=== PATIENT | male | born 1950 | race Caucasian/White ===

== ENCOUNTER 2024-04-06 17:47 | Emergency (ER) | payer MEDICARE, BC, SELFPAY ==
--- NOTE | 2024-04-06 18:53 | ED.GENMED ---
History of Present Illness
<Ivonne Trivedi, [employer] - Last Filed: 04/07/24 20:49>
General
Chief Complaint: Chest Pain
Source: patient
Exam Limitations: none
Time Seen by Provider: 04/06/24 18:52
Nursing documentation reviewed up to this point in time: agreed with
History of Present Illness
History of Present Illness:
73-year-old male with history of HTN, HLD, GERD here stating at 5:15 p.m., 30 minutes after 'wolfing down my dinner' as he hadn't eaten all day, while walking into the house from outside, had a 2 second episode of mid chest pressure then immediately
felt lightheaded, then felt tingling 'all over my body' then broke out in a heavy sweat. Took [address], belched several times and felt better, presents asymptomatic at this time.
Past History
<Ivonne Trivedi, [employer] - Last Filed: 04/07/24 20:49>
Past History
ED Past Medical History: GERD, HTN and Hypercholesterolemia
ED Past Surgical History: Tonsilectomy and Other (hernia repair)
Review of Systems
<Ivonne Trivedi, [employer] - Last Filed: 04/07/24 20:49>
Review of Systems
Allergies reviewed?: Yes
All Other Systems: ROS reviewed and negative except as documented in HPI and ROS
Constitutional: Denies fever or fatigue
Respiratory: Denies trouble breathing
Cardiac: Reports chest pain and diaphoresis; Denies palpitations or syncope
ABD/GI: Denies abdominal pain, nausea, vomiting or diarrhea
: Reports no symptoms
Musculoskeletal: Reports no symptoms
Skin: Reports no symptoms
Neurological: Reports no symptoms
Phy Exam
<Ivonne Trivedi, [employer] - Last Filed: 04/07/24 20:49>
Physical Exam
Physical Exam:
GENERAL: No acute distress. A&Ox3.
CONSTITUTIONAL: Afebrile.
EYES: clear, conjunctivae normal
ENMT: moist mucus membranes, Pharynx nl
RESPIRATORY: Regular respirations, nonlabored, lungs clear.
CARDIOVASCULAR: Regular rate and rhythm, no murmurs, no rubs.
GI: Soft, nontender, normal BS
MUSCULOSKELETAL: Moves with ease. Well perfused.
SKIN: Warm, dry, pink
PSYCH: Normal mood and affect. Well kept, interactive and appropriate
NEUROLOGIC: Awake, alert and oriented. No focal neurological deficits
Scores
<Ivonne Trivedi [employer] - Last Filed: 04/07/24 20:49>
Heart Score for Chest Pain Patients
Heart Score for Chest Pain Patients: 3
Heart Score Risk: 2.5% MACE over next 6 weeks
<Mona Jamison PA-C - Last Filed: 04/06/24 23:11>
Heart Score for Chest Pain Patients
STEMI patient?: No
History: Slightly or Non-Suspicious
ECG: Normal
Age: >/= 65 years
Risk Factors: 1 or 2 Risk Factors
Troponin: </= Normal Limit
Heart Score for Chest Pain Patients: 3
Heart Score Risk: 2.5% MACE over next 6 weeks
Course
<Ivonne Trivedi [employer] - Last Filed: 04/07/24 20:49>
Orders/Labs/Results
Orders:
Orders
04/06/24 17:52
Electrocardiogram (*1) Urgent
Reason for Study: Chest Pain
EKG- Treatment ONCE
04/06/24 18:11
O2 Therapy [RESP] Urgent
Titrate/Wean O2 to maintain O2 sat greater than (%): 90
Special Instructions: Maintain sats >/=90%
04/06/24 18:53
Complete Blood Count/With Diff Urgent
Comprehensive Metabolic Panel Urgent
Troponin I Urgent
04/06/24 19:09
CR Chest - 2 Views Urgent
Comment:
Reason For Exam: chest pain
04/06/24 20:18
EKG- Treatment ONCE
04/06/24 21:42
Troponin I Urgent
04/06/24 21:45
Electrocardiogram (*1) Urgent
Reason for Study: Chest Pain
Abnormal Lab Results
04/06/24
18:53
RBC 4.25 L 10^6/uL
(4.70-6.10)
Hct 36.8 L %
(39.0-52.0)
BUN 21 H mg/dl
(9-20)
Glucose 119 H mg/dl
(70-99)
Total Protein 6.2 L g/dl
(6.3-8.2)
04/06/24 18:53
04/06/24 18:53
Vital Signs
Initial and Last Documented VS:
Initial Vital Signs
Temp Pulse Resp Pulse Ox
98.0 F 93 16 99
04/06/24 17:50 04/06/24 17:50 04/06/24 17:50 04/06/24 17:50
Last Documented Vital Signs
Temp Pulse Resp BP Pulse Ox
98.0 F 60 16 122/76 98
04/06/24 17:50 04/06/24 22:40 04/06/24 22:40 04/06/24 22:40 04/06/24 22:40
<Mona Jamison PA-C - Last Filed: 04/06/24 23:11>
Orders/Labs/Results
Orders:
Orders
04/06/24 17:52
Electrocardiogram (*1) Urgent
Reason for Study: Chest Pain
EKG- Treatment ONCE
04/06/24 18:11
O2 Therapy [RESP] Urgent
Titrate/Wean O2 to maintain O2 sat greater than (%): 90
Special Instructions: Maintain sats >/=90%
04/06/24 18:53
Complete Blood Count/With Diff Urgent
Comprehensive Metabolic Panel Urgent
Troponin I Urgent
04/06/24 19:09
CR Chest - 2 Views Urgent
Comment:
Reason For Exam: chest pain
04/06/24 20:18
EKG- Treatment ONCE
04/06/24 21:42
Troponin I Urgent
04/06/24 21:45
Electrocardiogram (*1) Urgent
Reason for Study: Chest Pain
Abnormal Lab Results
04/06/24
18:53
RBC 4.25 L 10^6/uL
(4.70-6.10)
Hct 36.8 L %
(39.0-52.0)
BUN 21 H mg/dl
(9-20)
Glucose 119 H mg/dl
(70-99)
Total Protein 6.2 L g/dl
(6.3-8.2)
04/06/24 18:53
04/06/24 18:53
Vital Signs
Initial and Last Documented VS:
Initial Vital Signs
Temp Pulse Resp Pulse Ox
98.0 F 93 16 99
04/06/24 17:50 04/06/24 17:50 04/06/24 17:50 04/06/24 17:50
Last Documented Vital Signs
Temp Pulse Resp BP Pulse Ox
98.0 F 60 16 122/76 98
04/06/24 17:50 04/06/24 22:40 04/06/24 22:40 04/06/24 22:40 04/06/24 22:40
Sebastiánlt;Ivonne Trivedi [employer] - Last Filed: 04/07/24 20:49>
MDM/Problems Addressed
Differential Diagnosis Includes:
ACS, angina, GERD
MDM/Problems Addressed:
73-year-old male with history of HTN, HLD, GERD here stating at 5:15 p.m., 30 minutes after 'wolfing down my dinner' as he hadn't eaten all day, while walking into the house from outside, had a 2 second episode of mid chest pressure then immediately
felt lightheaded, then felt tingling 'all over my body' then broke out in a heavy sweat. Took [address] here, belched several times and felt better, presents asymptomatic at this time.
EKG NSR
7:30 p.m.
Troponin WNL
CBC normal
CMP normal
CXR normal
8:45 p.m.
Pt remains asymptomatic
Awaiting Troponin #2
Referred to Cardiology for follow up
<Ivonne Trivedi [employer] - Last Filed: 04/07/24 20:49>
*EKG
Interpreted by ED Provider?: Yes
EKG Intrepretation Date: 04/06/24
Interpretation: normal
Heart Rate: 78
Rate: normal
Rhythm: sinus
[place]: normal axis
Interval: normal interval
QRS Pattern: normal QRS
Ischemia: no ischemia
<Mona Jamison PA-C - Last Filed: 04/06/24 23:11>
*Critical Care Note
Total Time (30-74mins, 75-104mins- exclusive of procedures): Not Applicable
<Mona Jamison PA-C - Last Filed: 04/06/24 23:11>
Update Note
Update Note:
04/06/2024 2310 PM
Mona Jamison PA-C
Second troponin and EKG unchanged and negative. Patient remained asymptomatic. He is placed in the chest pain hotline. He feels comfortable going home.
ED Attending Note
<Ivonne Trivedi NP - Last Filed: 04/07/24 20:49>
-
Portions of this chart may have been created with voice recognition software.� Occasional wrong word or��sound alike� substitutions may have occurred due to the inherent limitations of voice recognition software.
Discharge Plan
Departure
Patient Disposition: Home (Routine Discharge)
Date of Disposition: 04/06/24
Time of Disposition: 22:34
Patient with high blood pressure during this ER visit?: No
Condition: Good
Discharge Problem:
Chest pain
Instructions: Chest Pain [facility] Follow Up
Referrals:
NONE,* [Family Provider] -
Ashely Nayak MD [Active] - Next open appointment
Activity Restrictions/Additional Instructions:
As we discussed, someone from the cardiology office will contact you Monday or Monday to make next available appointment for a more thorough cardiac workup.
Return here immediately for worsening chest pain or feeling sicker in any way.
Interventions
Interventions:
*Risk Screen - Suicide Last Done: 04/06/24 18:45
*General Assessment Last Done: 04/06/24 18:45
*Neglect/Abuse Screening Last Done: 04/06/24 18:45
ED- Fall Risk Assessment Last Done: 04/06/24 18:45
*ED COVID-19 Vaccine History Last Done: 04/06/24 22:24
*Nursing Disposition Last Done: 04/06/24 22:40
ED- Cardiac Assessment Last Done: 04/06/24 18:45
Discharge Date and Time
Discharge Date/Time: 04/06/24 22:42
Print Language: PERUVIAN
[2024-04-06 18:59] LABS: % Basophils 0.6 % (0-2); % Eosinophils 4.2 % (0-6); % Immature Granulocytes 0.3 % (0-0.5); % Lymphocytes 24.9 % (20.5-51.1); % Monocytes 8.9 % (1.7-9.3); % Neutrophils 61.1 % (42.2-75.2); Absolute Eosinophils 0.3 10^3/uL (0-0.7); Absolute Lymphocytes 1.7 10^3/uL (1.2-3.4); Absolute Monocytes 0.6 10^3/uL (0.1-0.6); Absolute Neutrophils 4.2 10^3/uL (1.4-6.5); Hematocrit 36.8 % (39.0-52.0); Hemoglobin 13.1 g/dL (13.0-18.0); Mean Corp Hgb Conc. 35.6 g/dL (33.0-37.0); Mean Corpuscular Hgb 30.8 pg (27.0-31.0); Mean Corpuscular Volume 86.6 fL (80.0-94.0); Mean Platelet Volume 9.4 fL (7.4-10.4); Nucleated Red Blood Cells % 0 % (-); Platelet Count 200 10^3/uL (130-400); Red Blood Cell Count 4.25 10^6/uL (4.70-6.10); Red Cell Dist. Width 12.3 % (11.5-14.5); White Blood Cell Count 6.9 10^3/uL (4.8-10.8)
[2024-04-06 19:33] LABS: ALT (SGPT) 22 U/L (0-50); AST (SGOT) 23 U/L (17-59); Albumin 3.9 g/dl (3.5-5.0); Alkaline Phosphatase 63 U/L (38-126); Blood Urea Nitrogen 21 mg/dl (9-20); Calcium 9.1 mg/dl (8.4-10.2); Carbon Dioxide 27 mmol/L (22-30); Chloride 100 mmol/L (98-107); Glucose 119 mg/dl (70-99); Potassium 3.9 mmol/L (3.5-5.1); Sodium 138 mmol/L (135-145); Total Bilirubin 0.4 mg/dl (0.2-1.3); Total Protein 6.2 g/dl (6.3-8.2); eGFR > 60.00
[2024-04-06 19:46] LABS: Troponin I < 0.012 ng/ml
[2024-04-06 21:36] VITALS: BP 143/82
[2024-04-06 21:39] VITALS: BP 143/82
[2024-04-06 22:11] LABS: Troponin I < 0.012 ng/ml
[2024-04-06 22:40] VITALS: BP 122/76
== END 2024-04-06 22:42 | disposition home or self-care (01) ==
LOC: EMR 17:47
PROVIDERS: Registered Nurse; EMERGENCY PHYSICIAN Emergency Medicine
DX: R07.89 Other chest pain (principal); R42 Dizziness and giddiness; R20.2 Paresthesia of skin; R61 Generalized hyperhidrosis; I10 Essential (primary) hypertension; E78.00 Pure hypercholesterolemia, unspecified; K21.9 Gastro-esophageal reflux disease without esophagitis
CPT/HCPCS: 99284; 71046; 80053; 84484; 85025; 93005

== ENCOUNTER → 2024-05-06 08:08 | Outpatient (REF) | payer MEDICARE, BC, SELFPAY | LOC: RCS 08:08 | PROVIDERS: ATTENDING PHYSICIAN Internal Medicine Cardiovascular Disease | DX: R07.89 Other chest pain (principal) | CPT/HCPCS: 93017; 93350 ==

== ENCOUNTER → 2024-09-08 06:41 | Outpatient (REF) | payer MEDICARE, BC, SELFPAY | LOC: MRI 06:41 | PROVIDERS: ATTENDING PHYSICIAN Pain Medicine Interventional Pain Medicine | DX: M54.16 Radiculopathy, lumbar region (principal) | CPT/HCPCS: 72148 ==